=== PATIENT | male | born 1980 | race Two or more races ===

== ENCOUNTER 2017-10-31 18:44 | Inpatient (IN) | payer OTHER ==
[~2017-10-31] VITALS: Ht 170.2 cm; Wt 121.4 kg
[2017-10-31] MEDS ORDERED: ACETAMINOPHEN 325 MG TAB PO PRN (19:45)
[2017-10-31] MEDS ORDERED: MORPHINE SULF INJ 2 MG/ML SYRINGE 1ML IV PRN (19:45)
[2017-10-31] MEDS ORDERED: NITROGLYCERIN 0.4 MG SL TAB SL PRN (19:45)
[2017-10-31] MEDS ORDERED: ACET650S12 PO (19:48)
[2017-10-31] MEDS ORDERED: ATOR20TA50 PO (19:54)
[2017-10-31] MEDS ORDERED: DULO60CA PO (19:54)
[2017-10-31] MEDS ORDERED: OMEP20CA74 PO (19:54)
[2017-10-31] MEDS ORDERED: HYDR12.56 PO (19:54)
[2017-10-31] MEDS ORDERED: ACET325T82 PO (19:54)
[2017-10-31] MEDS ORDERED: MELO1TAB56 PO (19:54)
[2017-10-31 20:00] VITALS: BP 146/78
[2017-10-31] MEDS: HYDROcodone-ACET 10/325MG TAB PO PRN (20:59)
[2017-10-31] MEDS: ATORVASTATIN 20 MG TAB PO SCH (20:59)
[2017-10-31] MEDS: DULoxetine HCL 30 MG CAP PO SCH (20:59)
[2017-10-31 21:30] LABS: Basophils # (auto) 0 uL; Basophils % (auto) 0.3 % (0.0-2.0); Eosinophils # (auto) 0.2 uL; Eosinophils % (auto) 2.2 % (0.0-7.0); Hematocrit 44.6 % (41.0-53.0); Hemoglobin 14.5 g/dL (13.5-17.5); Lymphocytes # (auto) 2.2 uL; Lymphocytes % (auto) 31.3 % (10.0-50.0); Mean Corpuscular Hemoglobin 27.6 pg (28.0-32.0); Mean Corpuscular Hgb Conc. 32.6 g/dL (32.0-36.0); Mean Corpuscular Volume 84.9 fL (80.0-100.0); Monocytes # (auto) 0.8 uL; Monocytes % (auto) 10.6 % (0.0-12.0); Neutrophils % (auto) 55.6 % (37.0-80.0); Platelet Count (auto) 308 10^3/uL (140-450); Red Blood Cells 5.26 10^6/uL (4.5-5.90); Red Cell Distribution Width 12.9 % (11.8-14.3); White Blood Cell 7.1 10^3/uL (4.4-10.8)
[2017-10-31 21:40] LABS: Albumin 3.9 g/dL (3.4-5.0); BUN/Creatinine Ratio 16.8; Calcium 8.4 mg/dL (8.5-10.1); Potassium 3.5 mmol/L (3.5-5.1)
[2017-10-31 21:43] LABS: Bilirubin, Total 0.1 mg/dL (0.2-1.0); Total Protein 7.4 g/dL (6.4-8.2)
[2017-10-31 21:49] LABS: INR 0.98 (0.9-1.15); Prothrombin Time 10.7 sec (9.37-12.3)
[2017-10-31 22:00] VITALS: BP 146/78
[2017-11-01] MEDS: HYDROcodone-ACET 10/325MG TAB PO PRN ×5 (01:17→20:14)
[2017-11-01 04:49] VITALS: BP 149/92
[2017-11-01 09:13] VITALS: BP 152/97
[2017-11-01] MEDS: PANTOPRAZOLE 40 MG TAB PO SCH (10:20)
[2017-11-01] MEDS: HCTZ 25 MG TAB PO SCH (10:20)
[2017-11-01] MEDS: amLODIPine BESYLATE 5 MG TAB PO SCH (10:20)
[2017-11-01 13:04] VITALS: BP 149/95
[2017-11-01 17:07] VITALS: BP 144/88
[2017-11-01 21:56] VITALS: BP 132/78
[2017-11-01] MEDS: ATORVASTATIN 20 MG TAB PO SCH (21:56)
[2017-11-01] MEDS: DULoxetine HCL 30 MG CAP PO SCH (21:56)
[2017-11-02] MEDS: HYDROcodone-ACET 10/325MG TAB PO PRN ×5 (00:20→19:54)
[2017-11-02 05:24] VITALS: BP 118/72
[2017-11-02 09:05] VITALS: BP 153/87
[2017-11-02] MEDS: amLODIPine BESYLATE 5 MG TAB PO SCH (09:44)
[2017-11-02] MEDS: PANTOPRAZOLE 40 MG TAB PO SCH (09:44)
[2017-11-02] MEDS: HCTZ 25 MG TAB PO SCH (09:45)
[2017-11-02] MEDS: DULoxetine HCL 30 MG CAP PO SCH (21:23)
[2017-11-02] MEDS: ATORVASTATIN 20 MG TAB PO SCH (21:24)
[2017-11-02 22:00] VITALS: BP 138/84
[2017-11-03 05:00] VITALS: BP 133/82
[2017-11-03] MEDS: HYDROcodone-ACET 10/325MG TAB PO PRN ×4 (06:09→21:45)
[2017-11-03 08:00] VITALS: BP 152/55
[2017-11-03 08:59] VITALS: BP 152/85
[2017-11-03] MEDS: PANTOPRAZOLE 40 MG TAB PO SCH (11:00)
[2017-11-03] MEDS: amLODIPine BESYLATE 5 MG TAB PO SCH (11:00)
[2017-11-03] MEDS: HCTZ 25 MG TAB PO SCH (11:01)
[2017-11-03 13:00] VITALS: BP 141/85
[2017-11-03 17:25] VITALS: BP 131/76
[2017-11-03] MEDS: DULoxetine HCL 30 MG CAP PO SCH (21:37)
[2017-11-03] MEDS: ATORVASTATIN 20 MG TAB PO SCH (21:38)
[2017-11-03 22:00] VITALS: BP 133/85
[2017-11-04 05:00] VITALS: BP 123/81
[2017-11-04 08:00] VITALS: BP 157/72
[2017-11-04 09:00] VITALS: BP 157/72
[2017-11-04] MEDS: HYDROcodone-ACET 10/325MG TAB PO PRN ×3 (09:05→21:31)
[2017-11-04] MEDS: PANTOPRAZOLE 40 MG TAB PO SCH (10:29)
[2017-11-04] MEDS: HCTZ 25 MG TAB PO SCH (10:30)
[2017-11-04] MEDS: amLODIPine BESYLATE 5 MG TAB PO SCH (10:30)
[2017-11-04 13:00] VITALS: BP 124/68
[2017-11-04] MEDS ORDERED: IBUPROFEN 800 MG TAB PO SCH (14:00)
[2017-11-04] MEDS: predniSONE 20 MG TAB PO SCH ×2 (16:15→21:30)
[2017-11-04 16:59] VITALS: BP 116/63
[2017-11-04] MEDS: DULoxetine HCL 30 MG CAP PO SCH (21:30)
[2017-11-04] MEDS: ATORVASTATIN 20 MG TAB PO SCH (21:30)
[2017-11-04 21:56] VITALS: BP 123/74
[2017-11-05 05:32] VITALS: BP 133/67
[2017-11-05] MEDS: HYDROcodone-ACET 10/325MG TAB PO PRN ×4 (08:21→21:55)
[2017-11-05 09:00] VITALS: BP 137/83
[2017-11-05] MEDS: HCTZ 25 MG TAB PO SCH (10:02)
[2017-11-05] MEDS: PANTOPRAZOLE 40 MG TAB PO SCH (10:02)
[2017-11-05] MEDS: predniSONE 20 MG TAB PO SCH ×2 (10:02→21:55)
[2017-11-05] MEDS: amLODIPine BESYLATE 5 MG TAB PO SCH (10:03)
[2017-11-05 13:00] VITALS: BP 123/70
[2017-11-05 17:48] VITALS: BP 122/74
[2017-11-05 20:00] VITALS: BP 128/78
[2017-11-05] MEDS: ATORVASTATIN 20 MG TAB PO SCH (21:55)
[2017-11-05] MEDS: DULoxetine HCL 30 MG CAP PO SCH (21:55)
[2017-11-05 22:32] VITALS: BP 128/78
[2017-11-06] VITALS (7 sets, daily range): BP systolic 106–135; BP diastolic 60–88
[2017-11-06] MEDS: HYDROcodone-ACET 10/325MG TAB PO PRN ×4 (08:15→20:47)
[2017-11-06] MEDS: HCTZ 25 MG TAB PO SCH (09:21)
[2017-11-06] MEDS: predniSONE 20 MG TAB PO SCH ×2 (09:21→22:02)
[2017-11-06] MEDS: amLODIPine BESYLATE 5 MG TAB PO SCH (09:22)
[2017-11-06] MEDS: PANTOPRAZOLE 40 MG TAB PO SCH (09:22)
[2017-11-06] MEDS: ATORVASTATIN 20 MG TAB PO SCH (22:02)
[2017-11-06] MEDS: DULoxetine HCL 30 MG CAP PO SCH (22:02)
[2017-11-07 06:01] VITALS: BP 125/69
[2017-11-07 07:30] VITALS: BP 136/73
[2017-11-07] MEDS: HYDROcodone-ACET 10/325MG TAB PO PRN ×3 (07:32→16:18)
[2017-11-07 09:00] VITALS: BP 136/73
[2017-11-07] MEDS: PANTOPRAZOLE 40 MG TAB PO SCH (10:59)
[2017-11-07] MEDS: predniSONE 20 MG TAB PO SCH (10:59)
[2017-11-07] MEDS: amLODIPine BESYLATE 5 MG TAB PO SCH (10:59)
[2017-11-07] MEDS: HCTZ 25 MG TAB PO SCH (11:00)
[2017-11-07 13:00] VITALS: BP 124/69
[2017-11-07 13:42] VITALS: BP 136/73
== END 2017-11-07 17:50 | disposition short-term general hospital (02) | DRG 556 ==
LOC: EEVIPCON 18:44 → EAST 18:44
PROVIDERS: ADMIT Internal Medicine; ATTEND Internal Medicine
DX: M25.852 Other specified joint disorders, left hip (principal); D16.22 Benign neoplasm of long bones of left lower limb; E78.00 Pure hypercholesterolemia, unspecified; I10 Essential (primary) hypertension; M19.029 Primary osteoarthritis, unspecified elbow; F32.9 Major depressive disorder, single episode, unspecified; F41.9 Anxiety disorder, unspecified; Z82.49 Family history of ischemic heart disease and other diseases of the circulatory system; Z88.0 Allergy status to penicillin
CPT/HCPCS: 36415; 73200; 73700; 80053; 85025; 85610; 85730